=== PATIENT | female | born 1960 | race Caucasian/White ===

== ENCOUNTER 2017-02-03 21:03 | Emergency (ER) | payer MEDICARE, OTHER ==
[2016-09-10 12:00] VITALS: BMI 20.2
[~2017-02-03 21:03] MED LIST: ADDERALL 30 MG30 MG PO; HYDROCODON-ACE1 EAC7 PO; KLONOPIN1 MG PO; MIRALAX17 GM PO; OXYCODONE HCL5 MG PO; PROZAC20 MG PO; SOMA350 MG PO; ZYPREXA10 MG PO
== END 2017-02-03 23:07 | disposition home or self-care (01) ==
LOC: D.ER 21:03
DX: S70.02XA Contusion of left hip, initial encounter (principal); W01.0XXA Fall on same level from slipping, tripping and stumbling without subsequent striking against object, initial encounter; Y93.89 Activity, other specified; Y92.019 Unspecified place in single-family (private) house as the place of occurrence of the external cause; F17.200 Nicotine dependence, unspecified, uncomplicated; F41.9 Anxiety disorder, unspecified; J44.9 Chronic obstructive pulmonary disease, unspecified; K58.9 Irritable bowel syndrome, unspecified

== ENCOUNTER → 2017-03-14 13:40 | Outpatient (CLI) | payer MEDICARE, OTHER ==
[2016-09-10 12:00] VITALS: BMI 20.2
== END | disposition home or self-care (01) ==
LOC: D.CT 03-13 14:00
DX: G44.309 Post-traumatic headache, unspecified, not intractable (principal)

== ENCOUNTER 2017-06-08 01:29 | Observation (INO) | payer MEDICARE, OTHER ==
[2016-09-10 12:00] VITALS: BMI 20.2
[2017-06-08 02:36] LABS: BASOPHILS 0.3 % (0-2); EOSINOPHILS 0.4 % (0-7); HEMATOCRIT 35.1 % (36.0-48.0); HEMOGLOBIN 12.1 g/dL (12-16); IMMATURE GRANULOCYTES 0.1 % (0-5); LYMPHOCYTES 58.6 % (15-50); MCH 30.3 pg (26.0-34.0); MCHC 34.5 g/dL (31.0-37.0); MCV 87.8 fL (80.0-100.0); MEAN PLATELET VOLUME 9.1 fL (7.4-10.4); MONOCYTES 3.8 % (2-11); NEUTROPHILS 36.8 % (40-80); RDW 12.6 % (11.5-14.5); WBC 7.6 10x3/uL (4.8-10.8)
[2017-06-08 02:55] LABS: PLATELET COUNT 182 10x3/uL (130-400)
[2017-06-08 02:58] LABS: CALC OSMOLALITY 247 mosm/kg (275-300); CALCIUM 8.4 mg/dL (8.5-10.1); CARBON DIOXIDE 28.4 mmol/L (21.0-32.0); CHLORIDE - SERUM 98 mmol/L (98-107); CREATININE - SERUM 0.7 mg/dL (0.6-1.3); GLUCOSE 88 mg/dL (74-106); POTASSIUM - SERUM 3.7 mmol/L (3.5-5.1); PRO BNP 47 pg/mL (0-125); SODIUM 124 mmol/L (136-145); TROPONIN-I < 0.017 ng/mL (0.000-0.060); UREA NITROGEN 11 mg/dL (7-18); eGFR NON AFRICAN AMERICAN > 90 mL/min (90-120)
[2017-06-08 03:57] LABS: UDS - AMPHET NEGATIVE QUAL (NEGATIVE); UDS - BARB NEGATIVE QUAL (NEGATIVE); UDS - BENZO POSITIVE QUAL (NEGATIVE); UDS - COCAINE NEGATIVE QUAL (NEGATIVE); UDS - METH NEGATIVE QUAL (NEGATIVE); UDS - OPIATE NEGATIVE QUAL (NEGATIVE); UDS - PCP NEGATIVE QUAL (NEGATIVE); UDS - THC NEGATIVE QUAL (NEGATIVE)
[2017-06-08 03:58] LABS: APPEARANCE CLEAR (CLEAR); BILIRUBIN NEGATIVE (NEGATIVE); COLOR YELLOW (YELLOW); GLUCOSE NEGATIVE (NEGATIVE); KETONE NEGATIVE (NEGATIVE); LEUKOCYTE ESTERASE NEGATIVE (NEGATIVE); NITRITE NEGATIVE (NEGATIVE); PROTEIN NEGATIVE (NEGATIVE); SPECIFIC GRAVITY 1.015 (1.005-1.020); UROBILINOGEN NORMAL (NORMAL)
--- NOTE | 2017-06-08 07:08 | NUR ---
PT WAS BROUGHT UP FROM THE ER AND CAME OUT TO NURSES STATION WANTING TO CALL HER MOM WHICH WE DIALED FOR HER AND THEN TRANSFERED THE CALL TO THE ROOM. AFTER TALKING WITH HER MOM FOR A SHORT TIME SHE CAME BACK OUT WITH HER HOME BP CUFF STATING THAT WE HAD NOT COME AND STARTED HER IV FLUIDS AND HER BP WAS LOW AND THAT WAS WHAT SHE CAME FOR. SHE HAD TAKEN OUT 2 IV'S IN THE ER AND THEN REFUSED TO LET THEM START ANOTHER BEFORE COMING UP HER. SHE THEN STATED SHE WAS GOING TO [facility] FOR NOT TAKING CARE OF HER AND SHE WAS LEAVING. WE TALKED WITH HER ABOUT GOING AMA AND SHE STATED SHE WAS NOT GOING TO GO AMA SHE WAS JUST LEAVING AND WE COULD NOT MAKE HER SIGN A PIECE OF PAPER. SHE ALSO STATED WE HAD NOT HELPED HER AND SHE BETTER NOT BE BILLED FOR THIS VISIT. THIS ALL HAPPENED IN THE 30 MINUTES SHE WAS HERE.
== END 2017-06-08 06:45 | disposition left against medical advice (07) ==
LOC: D.ER 01:29 → D.MS 04:26 → OBSVTIME 04:26 → D.MS 06:45
PROVIDERS: Emergency Medicine; ADMIT Family Medicine
DX: R00.1 Bradycardia, unspecified (principal); R06.02 Shortness of breath; E87.1 Hypo-osmolality and hyponatremia; I95.9 Hypotension, unspecified

== ENCOUNTER 2017-12-08 10:12 | Emergency (ER) | payer MEDICARE, OTHER ==
[2016-09-10 12:00] VITALS: BMI 20.2
[2017-12-08 10:45] LABS: UDS - AMPHET NEGATIVE QUAL (NEGATIVE); UDS - BARB NEGATIVE QUAL (NEGATIVE); UDS - BENZO NEGATIVE QUAL (NEGATIVE); UDS - COCAINE NEGATIVE QUAL (NEGATIVE); UDS - OPIATE NEGATIVE QUAL (NEGATIVE); UDS - PCP NEGATIVE QUAL (NEGATIVE); UDS - THC NEGATIVE QUAL (NEGATIVE)
[2017-12-08 11:00] LABS: APPEARANCE HAZY (CLEAR); BILIRUBIN NEGATIVE (NEGATIVE); COLOR DK YELLOW (YELLOW); GLUCOSE NEGATIVE (NEGATIVE); KETONE NEGATIVE (NEGATIVE); NITRITE NEGATIVE (NEGATIVE); PROTEIN 1+ mg/dL (NEGATIVE); UROBILINOGEN NORMAL (NORMAL)
[2017-12-08 11:02] LABS: BACTERIA MODERATE /hpf (NONE SEEN); EPITHELIAL CELLS 0-5 /hpf (0-5); GRANULAR CAST OCC /lpf (NONE SEEN); HYALINE CAST OCC /lpf (NONE SEEN); MUCUS <1+ /lpf (NONE SEEN); RED CELLS - URINE 0-5 /hpf (0-5)
[2017-12-08 11:23] LABS: BASOPHILS 0.1 % (0-2); EOSINOPHILS 0.1 % (0-7); HEMATOCRIT 39.6 % (36.0-48.0); HEMOGLOBIN 13.1 g/dL (12-16); IMMATURE GRANULOCYTES 0.2 % (0-5); MCH 29.3 pg (26.0-34.0); MCHC 33.1 g/dL (31.0-37.0); MCV 88.6 fL (80.0-100.0); MEAN PLATELET VOLUME 8.5 fL (7.4-10.4); MONOCYTES 4.4 % (2-11); NEUTROPHILS 72.2 % (40-80); RBC 4.47 10x6/uL (4.00-5.40); RDW 12.4 % (11.5-14.5)
[2017-12-08 11:25] LABS: PLATELET COUNT 255 10x3/uL (130-400)
[2017-12-08 11:43] LABS: ALBUMIN 4.9 g/dL (3.4-5.0); ANION GAP 16.3 mmol/L (8-16); BILIRUBIN - TOTAL 0.81 mg/dL (0.2-1.3); CALCIUM 9.6 mg/dL (8.5-10.1); POTASSIUM - SERUM 4.3 mmol/L (3.5-5.1); PROTEIN - SERUM 8.2 g/dL (6.4-8.2)
== END 2017-12-08 14:15 | disposition home or self-care (01) ==
LOC: D.ER 10:12
PROVIDERS: Family Medicine; Nurse Practitioner Family
DX: F23 Brief psychotic disorder (principal); N39.0 Urinary tract infection, site not specified; T76.21XA Adult sexual abuse, suspected, initial encounter; F17.200 Nicotine dependence, unspecified, uncomplicated; J44.9 Chronic obstructive pulmonary disease, unspecified

== ENCOUNTER 2018-06-02 14:24 | Emergency (ER) | payer MEDICARE, OTHER ==
[~2018-06-02] VITALS: Ht 170.2 cm; Wt 68.2 kg
[2018-06-02 14:43] VITALS: Ht 170.2 cm; Wt 68.2 kg
[2018-06-02 16:46] LABS: UDS - AMPHET NEGATIVE QUAL (NEGATIVE); UDS - BARB NEGATIVE QUAL (NEGATIVE); UDS - BENZO NEGATIVE QUAL (NEGATIVE); UDS - COCAINE NEGATIVE QUAL (NEGATIVE); UDS - OPIATE NEGATIVE QUAL (NEGATIVE); UDS - PCP NEGATIVE QUAL (NEGATIVE); UDS - THC NEGATIVE QUAL (NEGATIVE)
[2018-06-02 17:00] LABS: APPEARANCE CLEAR (CLEAR); COLOR YELLOW (YELLOW)
[2018-06-02 17:01] LABS: BILIRUBIN NEGATIVE (NEGATIVE); GLUCOSE NEGATIVE (NEGATIVE); KETONE NEGATIVE (NEGATIVE); NITRITE NEGATIVE (NEGATIVE); PROTEIN NEGATIVE (NEGATIVE); UROBILINOGEN NORMAL (NORMAL)
[2018-06-02 17:24] VITALS: BP 133/94
[2018-06-03 07:30] LABS: HEPATITIS C ANTIBODY <0.1 (0.0-0.9)
== END 2018-06-02 17:00 | disposition home or self-care (01) ==
LOC: D.ER 14:24
PROVIDERS: Family Medicine
DX: F22 Delusional disorders (principal); N95.2 Postmenopausal atrophic vaginitis; Z86.59 Personal history of other mental and behavioral disorders; F17.200 Nicotine dependence, unspecified, uncomplicated